=== PATIENT | male | born 1980 | race African-American/Black ===

== ENCOUNTER 2025-06-21 09:53 | Emergency (ER) | payer OTHER ==
[2025-06-21] MEDS ORDERED: Ibuprofen 800 MG TAB ONE (11:33)
== END 2025-06-21 11:41 ==
LOC: NAV ERS 09:53
DX: S43.402A Unspecified sprain of left shoulder joint, initial encounter (principal); S00.83XA Contusion of other part of head, initial encounter; S60.222A Contusion of left hand, initial encounter; S60.221A Contusion of right hand, initial encounter; I10 Essential (primary) hypertension; J45.909 Unspecified asthma, uncomplicated; Z79.51 Long term (current) use of inhaled steroids; Z79.899 Other long term (current) drug therapy; Y04.2XXA Assault by strike against or bumped into by another person, initial encounter; Y93.89 Activity, other specified
CPT/HCPCS: 99283